=== PATIENT | male | born 1980 | race Caucasian/White ===

== ENCOUNTER 2023-06-20 10:49 | Emergency (ER) | payer MEDICAID ==
[~2023-06-20] VITALS: Ht 188 cm; Wt 75.0 kg
[2023-06-20 10:50] VITALS: TEMP 98.9
[2023-06-20 11:39] LABS: BASOPHILS # (AUTO) 0.1 X10'3 (0-0.2); BASOPHILS % (AUTO) 1.1 % (0-1); EOSINOPHILS % (AUTO) 0.5 % (0-6); HEMATOCRIT 39.1 % (42.0-52.0); HEMOGLOBIN 13.3 g/dl (14.0-17.9); LYMPHOCYTES # (AUTO) 0.5 X10'3 (1.1-4.8); MEAN CORPUSCULAR HEMOGLOBIN 35.1 PG (27.0-31.0); MEAN CORPUSCULAR VOLUME 103.2 FL (78-98); MEAN PLATELET VOLUME 6.6 FL (7.4-10.4); MONOCYTES # (AUTO) 0.6 X10'3 (0-0.9); MONOCYTES % (AUTO) 9.7 % (2-12); NEUTROPHILS # (AUTO) 4.9 X10'3 (1.8-7.7); NEUTROPHILS % (AUTO) 79.7 % (42-75); PLATELET COUNT 219 X10'3 (140-440); RED BLOOD COUNT 3.79 X10'6 (4.70-6.10); RED CELL DISTRIBUTION WIDTH 14.4 % (11.5-14.5); WHITE BLOOD COUNT 6.1 X10'3 (4.5-11.0)
[2023-06-20] MEDS: ondansetron/PF 4mg/2ml inj IV ONE (11:46)
[2023-06-20] MEDS: LORazepam 2 mg/ml vial IV ONE (11:46)
[2023-06-20] MEDS: TETanus/Pertussis (Acell)/Diphther VAC/PF (Tdap-Adult) 0.5ml syringe IMVAC ONE (11:47)
[2023-06-20 11:53] LABS: ALBUMIN 4.5 G/DL (3.4-5.0); ANION GAP 12 (8-16); BLOOD UREA NITROGEN 8 MG/DL (7-18); BUN/CREATININE RATIO 9.3 (10.0-20.0); CALCIUM 8.4 MG/DL (8.5-10.1); CHLORIDE 100 MMOL/L (99-107); CREATININE 0.86 MG/DL (0.60-1.10); GLUCOSE 134 MG/DL (70-104); PRO BRAIN NATRIURETIC PEPTIDE < 30 PG/ML (0-125); SODIUM 142 MMOL/L (135-145); TOTAL CARBON DIOXIDE 30.5 MMOL/L (24-32); eCRCL 119 ML/MIN; eGFR > 90 ML/MIN
[2023-06-20] MEDS: LIDOcaine 1% 30ml preserv. free vial IJ ONE ×2 (11:54→15:01)
[2023-06-20] MEDS: normal saline 1000ML IV soln IVB ONE (12:00)
[2023-06-20] MEDS: potassium Cl 20 mEq SR tablet PO STA (13:08)
[2023-06-20 15:30] VITALS: BP 119/77; PULSE 95; RESP 16; O2SAT 99
== END 2023-06-20 15:38 | disposition home or self-care (01) ==
LOC: ER 10:50
DX: S01.111A Laceration without foreign body of right eyelid and periocular area, initial encounter (principal); E87.6 Hypokalemia; R55 Syncope and collapse; X58.XXXA Exposure to other specified factors, initial encounter; Y93.89 Activity, other specified; Y92.89 Other specified places as the place of occurrence of the external cause; Y99.8 Other external cause status
CPT/HCPCS: 12013; 36415; 70450; 71045; 80048; 83880; 84484; 85025; 90471; 90715; 93005; 96361; 96374; 96375; 99285; J2060; J2405; J7030; A6449

== ENCOUNTER 2023-07-10 13:21 | Emergency (ER) | payer MEDICAID ==
[~2023-07-10] VITALS: Ht 188 cm; Wt 73.5 kg
[2023-07-10 13:24] VITALS: BP 159/98; PULSE 86; RESP 18; TEMP 98.5; O2SAT 100
== END 2023-07-10 14:00 | disposition home or self-care (01) ==
LOC: ER 13:22
DX: S01.111D Laceration without foreign body of right eyelid and periocular area, subsequent encounter (principal); Z48.02 Encounter for removal of sutures; W18.39XD Other fall on same level, subsequent encounter
CPT/HCPCS: 99284